=== PATIENT | male | born 1995 | race Asian ===

== ENCOUNTER 2024-02-11 14:12 | Outpatient (REF) | payer OTHER, SELFPAY ==
--- NOTE | ~2024-02-11 | MR_ITS ---
EXAMINATION: MR KNEE WITHOUT CONTRAST, LEFT CLINICAL INFORMATION: Left knee pain. COMPARISON: None available. TECHNIQUE: MRI of the knee without contrast was performed using routine sequences on a high-field scanner. FINDINGS: MENISCI: Medial Meniscus: Mild heterogeneity of the posterior root insertion with a longitudinal band of increased T2 signal which contacts the femoral and tibial articular surfaces. Findings could represent normal variation versus a nondisplaced tear. Lateral Meniscus: Degenerative signal throughout the lateral meniscus without definite articular surface tearing. LIGAMENTS: Cruciate: Increased T2 signal within the anterior cruciate ligament which could represent normal variation versus a grade 1 sprain. No measurable tear. Intact posterior cruciate ligament. Collateral: Intact. EXTENSOR MECHANISM: Intact. ARTICULAR CARTILAGE/BONE: Patellofemoral Compartment: Intact articular cartilage. Medial Compartment: Intact articular cartilage. Lateral Compartment: Intact articular cartilage. JOINT FLUID AND BURSAE: Trace joint effusion. MR/MR knee LT wo con IMPRESSION: 1. Mild heterogeneity of the medial meniscus posterior root insertion with a longitudinal band of increased T2 signal which contacts the femoral and tibial articular surfaces. Findings could represent normal variation versus a nondisplaced tear. 2. Degenerative signal throughout the lateral meniscus without articular surface tearing. 3. Increased T2 signal within the anterior cruciate ligament which could represent normal variation versus a grade 1 sprain. No measurable tear. 4. Trace joint effusion. Electronically signed by: Fuad Ledesma MD 02/16/2024 10:01 AM EDT
== END 2024-02-11 14:13 | disposition home or self-care (01) ==
LOC: HO.MRI 14:12
PROVIDERS: PCP Student in an Organized Health Care Education/Training Program; Visit Provider Student in an Organized Health Care Education/Training Program
DX: M25.562 Pain in left knee (principal)
CPT/HCPCS: 73721